=== PATIENT | female | born 1960 | race Caucasian/White ===

== ENCOUNTER 2017-07-22 12:29 | Day surgery (SDC) | payer OTHER | END 2017-07-22 18:30 | disposition home or self-care (01) | LOC: GIL 12:29 | DX: I85.00 Esophageal varices without bleeding (principal); K44.9 Diaphragmatic hernia without obstruction or gangrene; K76.6 Portal hypertension; K31.89 Other diseases of stomach and duodenum; K29.70 Gastritis, unspecified, without bleeding; I10 Essential (primary) hypertension | CPT/HCPCS: 43239; 88305; 88312 ==

== ENCOUNTER 2017-07-22 17:40 | Emergency (ER) | payer OTHER ==
[2017-07-22] MEDS ORDERED: morphine 2 MG INJ IM (21:17)
[2017-07-22] MEDS: morphine 4 MG/ML VIAL IM (21:39)
== END 2017-07-22 22:52 | disposition home or self-care (01) ==
LOC: FTE 17:40
DX: M54.5 Low back pain (principal); I10 Essential (primary) hypertension
CPT/HCPCS: 72100; 96372; 99284-25

== ENCOUNTER 2018-03-10 11:58 | Day surgery (SDC) | payer OTHER | END 2018-03-10 17:27 | disposition home or self-care (01) | LOC: GIL 11:58 | DX: K74.60 Unspecified cirrhosis of liver (principal); K76.6 Portal hypertension; K31.89 Other diseases of stomach and duodenum; K21.9 Gastro-esophageal reflux disease without esophagitis; B18.2 Chronic viral hepatitis C | CPT/HCPCS: 43235 ==